=== PATIENT | male | born 1955 | race African-American/Black ===

== ENCOUNTER 2020-09-10 07:21 | Outpatient (CLI) | payer BC ==
--- NOTE | 2020-09-10 08:19 | ULT ---
RENAL ULTRASOUND: HISTORY: Chronic renal disease. FINDINGS: Real-time imaging of the right and left kidneys shows normal-size kidneys, the right measuring 11.6 a nd the left 12 cm. No cyst, mass, or obstruction. The bladder is unremarkable. The post void resid ual is 54 cc. IMPRESSION: Mild postvoid residual of 54 cc; otherwise, unremarkable renal ultrasound. POS: OFF
== END 2020-09-10 07:22 | disposition home or self-care (01) ==
LOC: BICULT 07:21
PROVIDERS: ATTEND Internal Medicine Nephrology
DX: N18.30 Chronic kidney disease, stage 3 unspecified (principal)
CPT/HCPCS: 76770